=== PATIENT | female | born 1990 | race Caucasian/White ===

== ENCOUNTER 2019-09-26 17:40 | Emergency (ER) | payer OTHER ==
[~2019-09-26] VITALS: Ht 157.5 cm; Wt 78.5 kg
[2019-09-26 17:56] VITALS: Ht 157.5 cm; Wt 78.5 kg
[2019-09-26 19:00] VITALS: BP 145/89
== END 2019-09-26 19:00 | disposition home or self-care (01) ==
LOC: ED 17:40
DX: R51 Headache (principal)
CPT/HCPCS: J1885

== ENCOUNTER 2020-04-21 17:50 | Emergency (ER) | payer OTHER, SELFPAY ==
[~2020-04-21] VITALS: Ht 157.5 cm; Wt 81.6 kg
[2020-04-21 17:52] VITALS: Ht 157.5 cm; Wt 81.6 kg
[2020-04-21 19:49] VITALS: BP 189/95
== END 2020-04-21 19:49 | disposition home or self-care (01) ==
LOC: ED 17:50
DX: B34.9 Viral infection, unspecified (principal); Z20.828 Contact with and (suspected) exposure to other viral communicable diseases
CPT/HCPCS: U0003-CS

== ENCOUNTER 2020-06-01 11:22 | Emergency (ER) | payer OTHER ==
[~2020-06-01] VITALS: Ht 157.5 cm; Wt 83.5 kg
[2020-06-01 11:36] VITALS: Ht 157.5 cm; Wt 83.5 kg
[2020-06-01 13:40] LABS: BASOPHIL % 0.3 % (0-2); PLATELET COUNT 269 x10^3mcL (130-400); RED CELL DISTRIBUTION WIDTH 13.4 % (11.5-14.5)
[2020-06-01 14:30] LABS: CALCIUM 8.1 mg/dL (8.5-10.1); CHLORIDE SERUM 103 mmol/L (98-107); CREATININE SERUM 0.7 mg/dL (0.6-1.0); GFR1 > 60 mL/min; GLUCOSE SERUM 75 mg/dL (74-106); POTASSIUM SERUM 3.7 mmol/L (3.5-5.1); SODIUM SERUM 139 mmol/L (136-145)
[2020-06-01 14:34] LABS: ALBUMIN 3.5 g/dL (3.4-5.0); ALKALINE PHOSPHATASE 77 U/L (46-116); ALT/SGPT 25 U/L (14-59); AST/SGOT 22 U/L (15-37); BILIRUBIN TOTAL 0.63 mg/dL (0.20-1.00); LIPASE 97 IU/L (73-393); TOTAL PROTEIN, SERUM 7.7 g/dL (6.4-8.2)
[2020-06-01 16:29] VITALS: BP 127/84
== END 2020-06-01 16:29 | disposition home or self-care (01) ==
LOC: ED 11:22
PROVIDERS: Specialist
DX: R10.13 Epigastric pain (principal); R11.10 Vomiting, unspecified; R19.7 Diarrhea, unspecified; Z20.828 Contact with and (suspected) exposure to other viral communicable diseases
CPT/HCPCS: J2405; J7030; U0003-CS